=== PATIENT | female | born 1975 | race Caucasian/White ===

== ENCOUNTER → 2016-09-06 | Outpatient (CLI) | payer OTHER ==
[~2016-09-06] MED LIST: ASPIR 8181 MG PO; BACTRIM DS 8001 TA1 PO; BACTROBAN OINT22 GM PO; BAYER ASPIRIN C81 MG PO; BYDUREON2 M1 SQ; CIPRO500 MG PO; CIPROFLOXACIN500 MG PO; CLARITIN10 MG PO; CLEOCIN HCL150 MG PO; CLEOCIN150 MG PO; CLINDAMYCIN HC300 MG PO; DARVOCET N 1001 TAB PO; EFFEXOR-XR37.5 MG PO; FLONASE 0.05% 121 EA NAS; FLONASE ALLERG9.9 ML NAS; FLONASE0.05 MG/AC NS; GLYBURIDE5 MG PO; HYDROCODONE BIT1 T11 PO; JANUVIA100 MG PO; LISINOPRIL10 M1 PO; LISINOPRIL5 MG PO; LOVASTATIN40 MG PO; LYRICA100 M1 PO; LYRICA50 M1 PO; MEDROL DOSEPAK4 MG PO; MOBIC15 MG PO; MOTRIN800 MG PO; MULTI VITAMINS1 TAB PO; Motrin,Rufen800 MG PO; NEXIUM40 MG PO; NKHM; PERCOCET 325 MG1 TA5 PO; PHENERGAN W/ DE30 ML PO; PHENERGAN25 M3 PO; PREDNICOT10 MG PO; PREDNISONE10 MG PO; PRENATAL VITAM1 EAC3 PO; PREPLUS CA-FE1 EACH PO; PROVERA10 MG PO; PROVERA2.5 MG PO; PYRIDIUM200 M1 PO; ROBITUSSIN AC 110 ML PO; ROBITUSSIN-AC 160 ML PO; SUDAFED60 MG PO; ULTRAM50 MG PO; VALTREX1 GM PO; VANCOCIN1000 MG/25 IV; VIBRAMYCIN100 MG PO; VIT B12 PO; ZITHROMAX Z PA250 MG PO; ZOFRAN ODT4 MG SL; ZYRTEC10 MG PO
[2016-09-06 10:47] LABS: URINE AMPHETAMINES < 1000 (1000ng/ml); URINE BARBITURATES < 200 (200ng/ml); URINE COCAINE < 300 (300ng/ml)
== END | disposition home or self-care (01) ==
LOC: LAB 10:11
PROVIDERS: Surgery
DX: Z01.818 Encounter for other preprocedural examination (principal); E66.01 Morbid (severe) obesity due to excess calories

== ENCOUNTER 2016-12-03 22:28 | Emergency (ER) | payer OTHER ==
[~2016-12-03] VITALS: Ht 172.7 cm; Wt 159.2 kg
[2016-12-03] MEDS ORDERED: CALCITRATE200 MG PO (22:35)
== END 2016-12-03 23:56 | disposition home or self-care (01) ==
LOC: ED 22:28
DX: M25.521 Pain in right elbow (principal); R03.0 Elevated blood-pressure reading, without diagnosis of hypertension; I10 Essential (primary) hypertension; E78.5 Hyperlipidemia, unspecified; E11.9 Type 2 diabetes mellitus without complications; Z88.1 Allergy status to other antibiotic agents; Z88.0 Allergy status to penicillin; Z79.82 Long term (current) use of aspirin; Z79.899 Other long term (current) drug therapy

== ENCOUNTER → 2016-12-28 | Outpatient (CLI) | payer OTHER ==
[~2016-12-28] MED LIST changes: +CALCITRATE200 MG PO
== END | disposition home or self-care (01) ==
LOC: ORTHO 03:21
DX: M17.11 Unilateral primary osteoarthritis, right knee (principal); M25.461 Effusion, right knee; M76.9 Unspecified enthesopathy, lower limb, excluding foot

== ENCOUNTER → 2017-04-12 | Outpatient (CLI) | payer OTHER | END | disposition home or self-care (01) | LOC: RAD 11:54 | DX: S33.140A Subluxation of L4/L5 lumbar vertebra, initial encounter (principal); M54.5 Low back pain; X58.XXXA Exposure to other specified factors, initial encounter; Y93.89 Activity, other specified; Y92.89 Other specified places as the place of occurrence of the external cause; Y99.8 Other external cause status ==

== ENCOUNTER → 2017-06-20 | Outpatient (CLI) | payer OTHER | END | disposition home or self-care (01) | LOC: MAMMO 14:31 | DX: Z12.31 Encounter for screening mammogram for malignant neoplasm of breast (principal) ==

== ENCOUNTER → 2019-01-16 | Outpatient (CLI) | payer OTHER | END | disposition home or self-care (01) | LOC: ORTHO 00:22 | DX: M17.0 Bilateral primary osteoarthritis of knee (principal) ==

== ENCOUNTER 2019-02-09 09:50 | Emergency (ER) | payer OTHER ==
[~2019-02-09] VITALS: Ht 172.7 cm; Wt 163.3 kg
[2019-02-09 10:32] LABS: BILIRUBIN NEGATIVE (NEGATIVE); BLOOD NEGATIVE (NEGATIVE); CLARITY SL CLOUDY (CLEAR); COLOR YELLOW (YELLOW); GLUCOSE NEGATIVE (NEGATIVE); KETONE NEGATIVE (NEGATIVE); LEUKO ESTERASE NEGATIVE (NEGATIVE); NITRITE NEGATIVE (NEGATIVE); UROBILINOGEN 0.2 E.U./dl (0.2-1.0)
[2019-02-09 10:41] LABS: BACTERIA 1+; EPITHELIAL CELLS 16-20
[2019-02-09 10:42] LABS: BASO % 0.4 % (0.0-1.0); EOS # 0.1 10*3/uL (0.0-0.4); EOS % 1.1 % (1.0-4.0); HEMATOCRIT 36.5 % (37.0-47.0); HEMOGLOBIN 11.6 g/dl (12.0-16.0); LYMPH # 1.3 10*3/uL (1.3-4.4); LYMPH % 26.9 % (27.0-41.0); MEAN CELL VOLUME 86.9 fl (81.0-99.0); MEAN CORPUSCULAR HGB 27.6 pg (27.0-31.0); MEAN CORPUSCULAR HGB CONC 31.8 g/dl (33.0-37.0); MEAN PLATELET VOLUME 10.5 fl (9.6-12.3); MONO # 0.5 10*3/uL (0.1-1.0); MONO % 11.2 % (3.0-9.0); NEUT # 2.9 10*3/uL (2.3-7.9); PLATELET COUNT AUTOMATED 170 10*3/uL (130-400); RED CELL DISTRI WIDTH 12.4 % (0-14.5); WHITE BLOOD COUNT 4.8 10*3/uL (4.8-10.8)
[2019-02-09 10:57] LABS: ALBUMIN 3.4 gm/dl (3.1-4.5); ALKALINE PHOSPHATASE 69 U/L (45-117); BUN 13 mg/dl (7-24); CHLORIDE 105 mmol/L (98-107); CREATININE 0.71 mg/dL (0.55-1.02); POTASSIUM 4.7 mmol/L (3.5-5.1); SGOT/AST 10 IU/L (3-35); SGPT/ALT 18 U/L (12-78); SODIUM 139 mmol/L (136-145); TOTAL PROTEIN 7.2 gm/dL (6.4-8.2)
== END 2019-02-09 11:35 | disposition home or self-care (01) ==
LOC: ED 09:50
PROVIDERS: Emergency Medicine
DX: R60.0 Localized edema (principal); M79.89 Other specified soft tissue disorders; E11.9 Type 2 diabetes mellitus without complications; E78.5 Hyperlipidemia, unspecified; I10 Essential (primary) hypertension; Z88.8 Allergy status to other drugs, medicaments and biological substances; Z88.1 Allergy status to other antibiotic agents; Z88.0 Allergy status to penicillin; Z79.899 Other long term (current) drug therapy

== ENCOUNTER 2019-05-11 02:37 | Emergency (ER) | payer OTHER ==
[~2019-05-11] VITALS: Ht 172.7 cm; Wt 178.3 kg
[2019-05-11] MEDS ORDERED: FUROSEMIDE20 M1 PO (02:42)
[2019-05-11] MEDS ORDERED: MELOXICAM7.5 MG PO (02:42)
[2019-05-11] MEDS ORDERED: OMEPRAZOLE MAGN20 MG PO (02:42)
[2019-05-11] MEDS ORDERED: Orphenadrine C100 MG PO (04:52)
[2019-05-11] MEDS ORDERED: Motrin,Rufen800 MG PO (04:52)
[2019-05-11] MEDS ORDERED: Percocet 325 MG1 TAB PO (04:57)
== END 2019-05-11 05:08 | disposition home or self-care (01) ==
LOC: ED 02:37
DX: M51.17 Intervertebral disc disorders with radiculopathy, lumbosacral region (principal); E11.9 Type 2 diabetes mellitus without complications; E78.5 Hyperlipidemia, unspecified; I10 Essential (primary) hypertension; Z88.0 Allergy status to penicillin; Z88.1 Allergy status to other antibiotic agents; Z88.8 Allergy status to other drugs, medicaments and biological substances; Z79.899 Other long term (current) drug therapy